=== PATIENT | male | born 1950 | race Caucasian/White ===

== ENCOUNTER 2023-10-01 02:40 | Emergency (ER) | payer SELFPAY ==
[2023-10-01] VITALS (11 sets, daily range): BP systolic 76–114; BP diastolic 44–92; PULSE 90–98; RESP 15–23; TEMP 36.4–36.6; O2SAT 97–100; BMI 18.6
--- NOTE | 2023-10-01 02:47 | CTR_ITS ---
PROCEDURE INFORMATION: Exam: CT Abdomen And Pelvis With Contrast Exam date and time: 10/01/2023 3:21 AM Age: 72 years old Clinical indication: Other: Hypotension/ anemia; Prior surgery; Surgery date: 6+ months; Surgery type: Resection of bladder neoplasm. Patient HX: Patient critically hypotensive and anemic with severe weakness. History of bladder cancer. TECHNIQUE: Imaging protocol: Computed tomography of the abdomen and pelvis with contrast. Radiation optimization: All CT scans at this facility use at least one of these dose optimization techniques: automated exposure control; mA and/or kV adjustment per patient size (includes targeted exams where dose is matched to clinical indication); or iterative reconstruction. Contrast material: OMNI 350; Contrast volume: 100 ml; Contrast route: INTRAVENOUS (IV); COMPARISON: CR (CHEST, ) 10/01/2023 3:11 AM RADIATION DOSE METRICS: Total DLP (mGy-cm): 1813.06 FINDINGS: Pleural spaces: There are bilateral pleural effusions. Liver: There are 2 hypoattenuation cystic masses seen within the liver, the largest seen in the left hepatic lobe measuring 3.8 cm. Gallbladder and bile ducts: Normal. No calcified stones. No ductal dilation. Pancreas: Normal. No ductal dilation. Spleen: Normal. No splenomegaly. Adrenal glands: Normal. No mass. Kidneys and ureters: There is massive bilateral hydronephrosis and hydroureter. There is no evidence for obstructing ureteral calculi or ureteral masses. Stomach and bowel: Unremarkable. No obstruction. No mucosal thickening. Appendix: No evidence of appendicitis. Intraperitoneal space: Unremarkable. No free air. No significant fluid collection. Vasculature: Unremarkable. No abdominal aortic aneurysm. Lymph nodes: Unremarkable. No enlarged lymph nodes. Urinary bladder: There is a lobulated thickening of the bladder wall in this patient known bladder cancer. There are patchy and strandy opacities superimposed over pleural effusions compatible with atelectasis. Reproductive: Unremarkable as visualized. Bones/joints: There a sclerotic lesion seen within the L2 vertebral body measuring approximately 2.9 cm AP dimension by 2.9 cm transverse dimension and 2.4 cm craniocaudal dimension. A metastatic lesion cannot be excluded view of patient's history of bladder cancer. Soft tissues: Unremarkable. CT/CT abdomen pelvis w con* [id number] IMPRESSION: 1. Lobulated thickening of the bladder in this patient with known bladder cancer. 2. Massive bilateral hydronephrosis likely secondary to at least partial obstruction within the ureterovesical junctions. 3. Bilateral pleural effusions with superimposed atelectasis. 4. There are 2 simple hepatic cysts present, the largest seen in the left hepatic lobe measuring 3.8 cm. No further workup needed. 5. Somewhat rounded mixed sclerotic lesion seen in the L2 vertebral body measuring up to 2.9 cm. A metastatic lesion cannot be excluded review of the patient's history bladder cancer.
--- NOTE | 2023-10-01 02:47 | XRR_ITS ---
PROCEDURE INFORMATION: Exam: XR Chest Exam date and time: 10/01/2023 3:11 AM Age: 72 years old Clinical indication: Other: General weakness/ anemia/ hypotension; Patient HX: General weakness with anemia and hypotension. History of bladder cancer. TECHNIQUE: Imaging protocol: Radiologic exam of the chest. Views: 1 view. COMPARISON: No relevant prior studies available. FINDINGS: Lungs: See Pleural spaces finding. Pleural spaces: There are bilateral pleural effusions, left larger than right. There are some strandy opacities superimposed over pleural effusions likely representing atelectasis. Some fluid and/or pleural thickening is seen within the major fissure on the right. Heart/Mediastinum: Unremarkable. No cardiomegaly. Bones/joints: Unremarkable. XR/XR chest 1V portable [id number] IMPRESSION: 1. Bilateral pleural effusions, left larger right. 2. There appears to be some fluid or pleural thickening within the major fissure on right. 3. Some strandy opacities are seen the lung bases superimposed pleural effusions likely representing atelectasis.
--- NOTE | 2023-10-01 03:01 | ED_ITS ---
HPI - General Adult 2 General: Chief complaint: Weakness Stated complaint: extreamlly low bp Time Seen by Provider: 10/01/23 02:47 Source: patient and family Mode of arrival: ambulatory Limitations: no limitations History of Present Illness: 72-year-old male has a history of bladde r cancer per family bladder cancer was diagnosed in February and [place]. They states that they want to take his bladder out and he refused they state they did do his surgery remove part of the tumor they had recommended chemo and radiation family states that he refused and he has been taking herbs. Patient states that since then he has progressively gotten weaker has been losing weight. He states he had to go back there and have blood transfusions. Patient's extremely ill-appearing here and very pale and hypotensive. He denies any vomiting diarrhea or fevers denies any blood in his urine or stool Associated symptoms: Reports malaise; Deny chest pain, dyspnea, headache(s), nausea, rash or vomiting Review of Systems 2 Const: Reports: fatigue and malaise; Denies: fever(s), chills, body aches or change in appetite Eyes: Denies: blurry vision or eye discomfort ENMT: Denies: throat pain or dental pain Card: Denies: chest pain Resp: Denies: dyspnea GI: Denies: abdominal pain, nausea, vomiting or diarrhea Musc: Denies: neck pain or back pain Skin/Breast: Denies: rash Neuro: Denies: headache(s) Physical Exam 2 Const: COMMON NORMALS: patient oriented x3 GENERAL APPEARANCE: ill appearing and frail appearing HENMT: COMMON NORMALS: normocephalic and atraumatic HEAD & SCALP: n ormocephalic and atraumatic Eye: COMMON NORMALS: Equal, round and reactive pupils present and EOMs intact bilaterally PUPIL: Yes Equal, round and reactive pupils present Neck/C-Spine: COMMON NORMALS: full ROM and supple Chest: COMMONS NORMALS: normal inspection of the chest and normal palpation of entire chest wall Resp: COMMON NORMALS: normal respiratory effort, No retractions, No use of accessory muscles and clear to auscultation bilaterally AUSCULTATION: clear to auscultation bilaterally Cardio: COMMON NORMALS: regular rate, regular rhythm and No murmurs present (Cardio) RATE: regular rate RHYTHM: regular rhythm GI: COMMON NORMALS: Normal to inspection, nondistended, normoactive bowel sounds present, Soft to palpation, non-tender and no masses PALPATION: Yes Soft to palpation Extremity: COMMON NORMALS: normal to inspection and full ROM Neuro: COMMON NORMALS: patient oriented x3, moves all extremities and no focal motor deficits Psych: COMMON NORMALS: mental status grossly normal, Normal thought process present and cooperative THOUGHT PROCESS: Normal thought process present Skin: COMMON NORMALS: no wounds NARRATIVE SKIN EXAM: pale Course 2 Vital Signs: Vital signs: Vital Signs Temperature 97.8 F 10/01/23 04:30 Pulse Rate 93 10/01/23 04:30 Respiratory Rate 15 10/01/23 04:30 Blood Pressure 96/61 10/01/23 04:30 Pulse Oximetry 100 10/01/23 04:30 [facility] - General Adult Medical Decision Making Patient presents for history of bladder cancer he is found to be anemic here along with severely hyponatremic with kidney failure. 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 Patient states that he knows that he is going to soon he wants to at home and does not want to stay in the hospital. Will discharge him and his wishes Medical Records I reviewed the patient's medical records. Lab Data I reviewed the patient's lab results. 10/01/23 03:13 10/01/23 03:13 Radiology Impressions Abdomen/Pelvis CT 10/01/23 02:47 IMPRESSION: 1. Lobulated thickening of the bladder in this patient with known bladder cancer. 2. Massive bilateral hydronephrosis likely secondary to at least partial obstruction within the ureterovesical junctions. 3. Bilateral pleural effusions with superimposed atelectasis. 4. There are 2 simple hepatic cysts present, the largest seen in the left hepatic lobe measuring 3.8 cm. No further workup needed. 5. Somewhat rounded mixed sclerotic lesion seen in the L2 vertebral body measuring up to 2.9 cm. A metastatic lesion cannot be excluded review of the patient's history bladder cancer. Chest X-Ray 10/01/23 02:47 IMPRESSION: 1. Bilateral pleural effusions, left larger right. 2. There appears to be some fluid or pleural thickening within the major fissure on right. 3. Some strandy opacities are seen the lung bases superimposed pleural effusions likely representing atelectasis. Laboratory Results WBC 6.47 10^3/uL (3.29-11.43) 10/01/23 03:13 RBC 2.21 10^6/uL (3.85-5.65) L 10/01/23 03:13 Hgb 6.40 g/dL (11.27-16.99) L* 10/01/23 03:13 Hct 19.1 % (37-53) L* 10/01/23 03:13 MCV 86.4 fl (82-101) 10/01/23 03:13 MCH 29.0 pg (27-33) 10/01/23 03:13 MCHC 33.5 g/dL (30-55) 10/01/23 03:13 RDW 14.4 % (12.1-15.1) 10/01/23 03:13 Plt Count 367 10^3/cmm (157-399) 10/01/23 03:13 MPV 8.7 fL (7.4-10.4) 10/01/23 03:13 Neut % (Auto) 86.6 % 10/01/23 03:13 Lymph % (Auto) 6.3 % 10/01/23 03:13 [place] % (Auto) 6.0 % 10/01/23 03:13 Eos % (Auto) 0.0 % 10/01/23 03:13 Baso % (Auto) 0.0 % 10/01/23 03:13 Neut # (Auto) 5.60 10^3/uL (1.8-7.7) 10/01/23 03:13 Lymph # (Auto) 0.4 10^3/uL (0.8-4.8) L 10/01/23 03:13 [place] # (Auto) 0.4 10^3/uL (0.2-0.9) 10/01/23 03:13 Eos # (Auto) 0.0 10^3/uL (0.0-0.8) 10/01/23 03:13 Baso # (Auto) 0.0 10^3/uL (0.0-0.1) 10/01/23 03:13 Nucleated RBC % (auto) 0 % 10/01/23 03:13 Nucleated RBCs # 0.0 /100WBC 10/01/23 03:13 PT 16.40 SECONDS (12.1-14.9) H 10/01/23 03:13 INR 1.28 (0.8-1.2) H 10/01/23 03:13 Sodium 110 mmol/L (136-145) L* 10/01/23 03:13 Potassium 5.7 mmol/L (3.5-5.1) H 10/01/23 03:13 Chloride 80 mmol/L (98-107) L 10/01/23 03:13 Carbon Dioxide 11 mmol/L (22-29) L 10/01/23 03:13 Anion Gap 24.7 (5-19) H 10/01/23 03:13 BUN 134 mg/dL (8-23) H* 10/01/23 03:13 Creatinine 4.3 mg/dL (0.7-1.2) H 10/01/23 03:13 GFR Calculation Not Reportable 10/01/23 03:13 Glucose 137 mg/dL (65-115) H 10/01/23 03:13 Calculated Osmolality 275 mOsm/kg (285-295) L 10/01/23 03:13 Lactic Acid 2.4 mmol/L (0.5-2.2) H 10/01/23 03:13 Calcium 6.8 mg/dL (8.5-10.5) L 10/01/23 03:13 Total Bilirubin 0.2 mg/dL (0.15-1.2) 10/01/23 03:13 AST 26 U/L (0-40) 10/01/23 03:13 ALT 49 U/L (0-41) H 10/01/23 03:13 Alkaline Phosphatase 198 U/L (40-130) H 10/01/23 03:13 NT-Pro-B Natriuret Pep 5353 pg/mL (0-125) H 10/01/23 03:13 Total Protein 4.3 g/dL (6.6-8.7) L 10/01/23 03:13 Albumin 1.9 g/dL (3.5-5.2) L 10/01/23 03:13 Globulin 2.4 g/dL (1.3-4.6) 10/01/23 03:13 Blood Type A Positive 10/01/23 03:13 Rho(D) Type Rh positive 10/01/23 03:13 Antibody Screen Negative 10/01/23 03:13 Crossmatch See Detail 10/01/23 03:13 All radiology interpretation(s) finalized by discharge Discharge Plan Discharge Patient Disposition: Home Clinical Impression: Anemia, Bladder cancer Condition: Stable Discharge Orders: Discharge ED (Routine); Ordered 10/01/23 Ordered By: Ildefonso Abad Referrals: Jose Heard MD [Primary Care Provider] - Discharge Diet: Advance as tolerated Discharge Activity: Resume usual activity Patient Instructions: Bladder Cancer (DC), Anemia (ED) Coding Level of Care Code ED Pressurised Container Filler for Vandana Lopez
[2023-10-01] MEDS: sodium chloride 0.9% 1,000 ML 999 ML IV (03:09)
[2023-10-01 03:22] LABS: Lymphocytes # 0.4 10^3/uL (0.8-4.8); Lymphocytes % 6.3 %; Mean Corpuscular HGB Conc 33.5 g/dL (30-55); Mean Corpuscular Volume 86.4 fl (82-101); Mean Platelet Volume 8.7 fL (7.4-10.4); Monocytes # 0.4 10^3/uL (0.2-0.9); Neutrophils % 86.6 %; Nucleated Red Blood Cells % 0 %; Platelet Count 367 10^3/cmm (157-399); Red Blood Count 2.21 10^6/uL (3.85-5.65); Red Cell Distribution Width 14.4 % (12.1-15.1); White Blood Count 6.47 10^3/uL (3.29-11.43)
[2023-10-01] MEDS: iohexol 350 mg/mL 500 mL Btl (per mL) IV (03:22)
[2023-10-01 03:24] LABS: Hematocrit 19.1 % (37-53)
[2023-10-01 03:42] LABS: INR 1.28 (0.8-1.2); Lactic Sepsis W/Reflex 2.4 mmol/L (0.5-2.2)
[2023-10-01 03:53] LABS: Alanine Aminotransferase 49 U/L (0-41); Albumin Level 1.9 g/dL (3.5-5.2); Alkaline Phosphatase 198 U/L (40-130); Anion Gap 24.7 (5-19); Aspartate Amino Transferase 26 U/L (0-40); Calcium 6.8 mg/dL (8.5-10.5); Carbon Dioxide 11 mmol/L (22-29); Chloride 80 mmol/L (98-107); Creatinine Clr Calc Pharmacy 12.5705; Globulin 2.4 g/dL (1.3-4.6); Glucose 137 mg/dL (65-115); NT Pro B Type Natriuretic Pept 5353 pg/mL (0-125); Potassium 5.7 mmol/L (3.5-5.1); Total Bilirubin 0.2 mg/dL (0.15-1.2); Total Protein 4.3 g/dL (6.6-8.7)
[2023-10-01 04:00] LABS: Osmolality Calculated 275 mOsm/kg (285-295)
[2023-10-01 04:01] LABS: Blood Urea Nitrogen 134 mg/dL (8-23); Sodium 110 mmol/L (136-145)
--- NOTE | 2023-10-01 04:19 | PC.NURSE ---
Pt. resting in bed while blood started . Nurse at bedside while starting blood transfusion.
[2023-10-01 05:06] LABS: Reflex Lactate Order REFLEX LACTIC ORDERD
--- NOTE | 2023-10-01 07:05 | PC.NURSE ---
Pt. spouse insists on taking home a 10CC syringe so that she can remove catheter at home in case the tube is clogged. Spouse also states that she wants to put herbs into his bladder. I have urged family not to do these things because it could cause a urinary tract infection, but family does not seem care about advice given.
== END 2023-10-01 09:23 | disposition home or self-care (01) ==
PROVIDERS: Emergency Provider Emergency Medicine; PCP Family Medicine
DX: D64.9 Anemia, unspecified (principal); C67.9 Malignant neoplasm of bladder, unspecified
CPT/HCPCS: 36430; 51702; 71045; 74177; 80053; 83605; 83880; 85025; 85610; 86850; 86900; 86920; 87040; 99285; J7030; P9016; Q9967